=== PATIENT | female | born 1945 | race Caucasian/White ===

== ENCOUNTER 2023-08-24 12:14 | Emergency (ER) | payer MEDICARE, OTHER, SELFPAY ==
[2023-08-24 12:20] VITALS: BP 185/94
[2023-08-24 12:34] LABS: % Basophils 0.8 % (0-2); % Immature Granulocytes 0.4 % (0-0.5); % Lymphocytes 27.6 % (20.5-51.1); % Monocytes 7.6 % (1.7-9.3); % Neutrophils 59.6 % (42.2-75.2); Absolute Eosinophils 0.2 10^3/uL (0-0.7); Absolute Lymphocytes 1.4 10^3/uL (1.2-3.4); Absolute Monocytes 0.4 10^3/uL (0.1-0.6); Hematocrit 39.4 % (37.0-47.0); Hemoglobin 12.7 g/dL (12.0-16.0); Mean Corp Hgb Conc. 32.2 g/dL (33.0-37.0); Mean Corpuscular Hgb 29.1 pg (27.0-31.0); Mean Corpuscular Volume 90.4 fL (81.0-99.0); Mean Platelet Volume 9.1 fL (7.4-10.4); Nucleated Red Blood Cells % 0 %; Platelet Count 297 10^3/uL (130-400); Red Blood Cell Count 4.36 10^6/uL (4.20-5.40); Red Cell Dist. Width 13.4 % (11.5-14.5)
[2023-08-24 12:54] LABS: ALT (SGPT) 28 U/L (0-35); AST (SGOT) 32 U/L (14-36); Albumin 4.8 g/dl (3.5-5.0); Alkaline Phosphatase 70 U/L (38-126); Blood Urea Nitrogen 20 mg/dl (7-17); Carbon Dioxide 26 mmol/L (22-30); Chloride 104 mmol/L (98-107); Glucose 102 mg/dl (70-99); Potassium 4.7 mmol/L (3.5-5.1); Sodium 138 mmol/L (135-145); Total Bilirubin 0.6 mg/dl (0.2-1.3); eGFR > 60.00
--- NOTE | 2023-08-24 14:41 | ED.GENMED ---
History of Present Illness
General
Chief Complaint: Dizziness
Source: patient
Exam Limitations: none
Time Seen by Provider: 08/24/23 14:40
Nursing documentation reviewed up to this point in time: agreed with
Travel History
Have you had any contact with someone who has COVID-19?: No
Do you have any symptoms of coronavirus? Fever > 100 degrees, chills, cough, shortness of breath, sore throat, loss of taste or smell, muscle aches, or headache?: No
History of Present Illness
History of Present Illness:
78-year-old female with history of HTN, hyperglycemia, anemia, anxiety presents stating she woke up 7 a.m. with dizziness, not room spinning, 'inside my head' went back to bed, woke 9 a.m. still dizzy. Has had steady gait, dizziness is there at rest
and when moving, has had this before, last time 2 weeks ago, usually becomes anxious, takes her Ativan 0.5 mg and it dissipates. Dizziness was 9/10 this a.m. with nausea, took Ativan 11:30 and now dizziness 2/10 and nausea subsided. Denies change in
vision, no recent trauma, has 'mild' H/A. Denies weakness in extremities, has chronic neuropathy both feet, unchanged.
She flew to and from [place] 09/12 and 09/16, developed pressure behind right eye and sinus pressure Saw eye doctor 4 days ago for pain and pressure behind right eye, told eye exam was fine, may be sinus pressure.
She is due to get end of the month, fiance with her states she may be extra stressed but pt denies feeling much stress.
Past History
Past History
ED Past Medical History: HTN, Hypercholesterolemia, Psychiatric (Generalized anxiety, panic disorder) and Other (Constipation)
ED Past Surgical History: Gynecological (hyster)
Social History
Tobacco: Non-smoker
Alcohol: None
Drug: None
Personal:
Living: with family
Employment: Employed
Family History
Family History: Other (Noncontributory)
Review of Systems
Review of Systems
Allergies reviewed?: Yes
All Other Systems: ROS reviewed and negative except as documented in HPI and ROS
Constitutional: Denies fever or fatigue
EENT: Denies sore throat or runny nose
Respiratory: Denies trouble breathing
Cardiac: Denies chest pain
ABD/GI: Denies abdominal pain
: Reports no symptoms
Musculoskeletal: Reports no symptoms
Skin: Reports no symptoms
Neurological: Reports dizzy; Denies headache, weakness or numbness
Phy Exam
Physical Exam
Physical Exam:
GENERAL: No acute distress. A&Ox3.
CONSTITUTIONAL: Afebrile.
EYES: PERRL, conjunctivae normal
Neck: Supple
ENMT: moist mucus membranes, Pharynx nl, TMs normal
RESPIRATORY: Regular respirations, nonlabored, lungs clear.
CARDIOVASCULAR: Regular rate and rhythm, no murmurs, no rubs.
GI: Soft, nontender, normal BS
MUSCULOSKELETAL: Moves with ease. Well perfused.
SKIN: Warm, dry, pink
PSYCH: Normal mood and affect. Well kept, interactive and appropriate
NEUROLOGIC: Awake, alert and oriented. Speech clear. Cranial nerves II through XII intact. Strength equal throughout. [id number]-[id number] intact. Ambulates well with steady gait. No focal neurological deficits
Course
Orders/Labs/Results
Orders:
Orders
08/24/23 12:22
Electrocardiogram (*1) Urgent
Reason for Study: Vertigo / Dizzy
08/24/23 12:23
EKG- Treatment ONCE
08/24/23 12:28
CMP [Comprehensive Metabolic Panel] Urgent
Complete Blood Count/With Diff Urgent
08/24/23 15:16
CT Head W/o Iv Contrast Urgent
Comment:
Reason For Exam: dizziness
08/24/23 15:30
Physical Therapy Consult [Pt Eval And Treat] Urgent
Treatment: Vestibular evaluation after CT head result back
Activity Level: As Tolerated
08/24/23 16:03
Urinalysis Reflex To Culture Urgent
Date Specimen was Collected: 08/24/23
Time Specimen was Collected: 15:37
Urine Microscopic Reflex Cult Urgent
Urine Culture Urgent
SVETLANA Source: U
Specimen Description:
Date Specimen was Collected: 08/24/23
Time Specimen was Collected: 15:37
Abnormal Lab Results
08/24/23 08/24/23
12:28 16:03
MCHC 32.2 L g/dL
(33.0-37.0)
BUN 20 H mg/dl
(7-17)
Glucose 102 H mg/dl
(70-99)
Leukocyte Esterase Rfl 2+ A
(Negative)
Urine Bacteria (Reflex) Few A
(Negative)
08/24/23 12:28
08/24/23 12:28
Vital Signs
Initial and Last Documented VS:
Initial Vital Signs
Temp Pulse Resp BP Pulse Ox
98.8 F 85 18 185/94 96
08/24/23 12:20 08/24/23 12:20 08/24/23 12:20 08/24/23 12:20 08/24/23 12:20
Last Documented Vital Signs
Temp Pulse Resp BP Pulse Ox
98.8 F 80 20 125/67 96
08/24/23 12:20 08/24/23 16:08 08/24/23 16:08 08/24/23 16:08 08/24/23 16:08
MDM/Problems Addressed
Differential Diagnosis Includes:
BPPV, Labyrinthitis, vestibular neuritis, CVA, sinusitis
MDM/Problems Addressed:
78-year-old female with history of HTN, hyperglycemia, anemia, anxiety presents stating she woke up 7 a.m. with dizziness, not room spinning, 'inside my head' went back to bed, woke 9 a.m. still dizzy. Has had steady gait, dizziness is there at rest
and when moving, has had this before, last time 2 weeks ago, usually becomes anxious, takes her Ativan 0.5 mg and it dissipates. Dizziness was 9/10 this a.m. with nausea, took Ativan 11:30 and now dizziness 2/10 and nausea subsided. Denies change in
vision, no recent trauma, has 'mild' H/A. Denies weakness in extremities, has chronic neuropathy both feet, unchanged.
She flew to and from [place] 09/12 and 09/16, developed pressure behind right eye and sinus pressure Saw eye doctor 4 days ago for pain and pressure behind right eye, told eye exam was fine, may be sinus pressure.
She had left ear pain after her flight but this has dissipated.
She is due to get end of the month, fiance with her states she may be extra stressed but pt denies feeling much stress.
EKG: NSR with sinus arrhythmia
Neuro exam unremarkable
Some left nystagmus noted
3:12 PM
CBC unremarkable
CMP with no clinically significant abnormality, BUN 20 May have mild dehydration p.o. fluids encouraged
In further conversation, pt admits she has chronic neck pain, was told she needs surgery about 5 years ago, has not seen anyone since as she does not want surgery.
MRI c spine from 02/2017 reviewed: Impression:
Multilevel degenerative changes.
C3-4: Severe right foraminal stenosis. Mild central canal narrowing. Mild to moderate left foraminal narrowing.
C4-5: Moderate central canal stenosis. Mild cord compression. Advanced bilateral foraminal stenosis, right greater than left.
C5-6: Small protrusion. Advanced right foraminal stenosis. Mild central canal narrowing. No cord compression. Mild left foraminal narrowing.
C6-7: Moderate protrusion. Mild ventral cord compression. Moderate right foraminal stenosis.
Small subtle shallow disc protrusion in the visualized upper thoracic spine at T3-4.
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
Her intermittent dizziness could certainly be cervicogenic
Head CT: No acute abnormality
P/T in agrees with left nystagmus, minimal vertigo during exam, no skilled P/T needs identified.
Plan: Short burst steroids for c spine inflammation, suspect vestibular neuritis, her Ativan gave her much relief. f/u w PCP
She has orthopedic at [facility] to f/u with for her neck if she decides to do so
Pt ambulated out with normal gait at discharge
*EKG
EKG Intrepretation Date: 08/24/23
Interpretation: normal
Rate: normal
Rhythm: sinus and sinus arrhythmia
[place]: normal axis
Interval: normal interval
QRS Pattern: normal QRS
Ischemia: no ischemia
*Critical Care Note
Total Time (30-74mins, 75-104mins- exclusive of procedures): Not Applicable
ED Attending Note
-
Portions of this chart may have been created with voice recognition software.� Occasional wrong word or��sound alike� substitutions may have occurred due to the inherent limitations of voice recognition software.
Discharge Plan
Departure
Patient Disposition: Home (Routine Discharge)
Date of Disposition: 08/24/23
Time of Disposition: 16:58
Patient with high blood pressure during this ER visit?: No
Condition: Good
Discharge Problem:
Dizziness, Acute vestibular neuritis, DJD (degenerative joint disease) of cervical spine
Instructions: Labyrinthitis, Degenerative Disc Disease ED, Dizziness
Prescriptions:
New
prednisone 10 mg Tablet
See Rx Instructions .ROUTE .COMPLEX Qty: 30 0RF
Rx Instructions:
Take By Mouth:
40 mg daily x3 days, 30 mg daily x3 days,
20 mg daily x3 days, 10 mg daily x3 days.
No Action
lisinopril 5 MG tablet
5 mg PO DAILY
ginkgo biloba-Panax ginseng rt 1 CAP capsule
1 cap PO DAILY
bisacodyl 5 MG tablet,delayed release (DR/EC)
10 mg PO HSPRN PRN (Reason: constipation)
bisacodyl 5 MG tablet,delayed release (DR/EC)
5 mg PO DAILYPRN PRN (Reason: constipation)
lorazepam 1 MG tablet
1 mg PO HS
Patient Comments:
12/26/2017 patient takes 1mg at bed time but took 2mg today on the way in
fish oil-dha-epa 1 EACH capsule
1 ea PO DAILY
metronidazole 500 MG tablet
500 mg PO TID Qty: 21 0RF
levofloxacin 500 MG tablet
500 mg PO DAILY Qty: 7 0RF
Referrals:
Grace Kaufman CRNP [Family Provider] - Call in 1-3 days for appt
Activity Restrictions/Additional Instructions:
As we discussed, your intermittent dizziness may be caused by your significant cervical spine abnormalities.
Your dizziness may also be caused by inflammation of the inner ear ear, especially since you were flying recently.
I sent a prescription for steroids to your pharmacy this may help the inflammation in both your neck and your inner ear and help your dizziness.
You may want to consider reevaluation of your neck if your dizziness persists.
Follow up with your primary care provider in 7-10 days for re evaluation
Interventions
Interventions:
*Risk Screen - Suicide Last Done: 08/24/23 12:20
*General Assessment Last Done: 08/24/23 15:34
*Neglect/Abuse Screening Last Done: 08/24/23 12:20
*ED COVID-19 Vaccine History Last Done: 08/24/23 12:20
Discharge Date and Time
Print Language: LAO
[2023-08-24 15:34] VITALS: BMI 22.8
[2023-08-24 16:08] VITALS: BP 125/67
[2023-08-24 16:20] LABS: Urine Albumin Negative (Neg - Trace); Urine Bilirubin Negative (Negative); Urine Character Clear (Clear); Urine Color Yellow; Urine Glucose Negative (Negative); Urine Ketone Negative (Negative); Urine Leukocyte 2+ (Negative); Urine Nitrite Negative (Negative); Urine Occult Blood Negative (Negative); Urine Urobilinogen Negative (Neg - 1+)
[2023-08-24 16:35] LABS: Urine Bacteria Few (Negative); Urine Red Blood Cell 0-2 /HPF (0-2)
[2023-08-24 17:17] VITALS: BP 125/80; BP 143/80; PULSE 84
== END 2023-08-25 17:15 | disposition home or self-care (01) ==
LOC: EMR 12:14
PROVIDERS: Registered Nurse; Student in an Organized Health Care Education/Training Program; EMERGENCY PHYSICIAN Emergency Medicine; FAMILY PHYSICIAN Nurse Practitioner Family
DX: R42 Dizziness and giddiness (principal); R11.0 Nausea; M54.2 Cervicalgia; M47.812 Spondylosis without myelopathy or radiculopathy, cervical region; G58.8 Other specified mononeuropathies; E78.00 Pure hypercholesterolemia, unspecified; I10 Essential (primary) hypertension; F41.1 Generalized anxiety disorder; F41.0 Panic disorder [episodic paroxysmal anxiety]; M48.02 Spinal stenosis, cervical region; M51.24 Other intervertebral disc displacement, thoracic region; D64.9 Anemia, unspecified; G62.9 Polyneuropathy, unspecified; G89.29 Other chronic pain; Z88.3 Allergy status to other anti-infective agents; Z88.0 Allergy status to penicillin
CPT/HCPCS: 70450; 80053; 81003; 81015; 85025; 87086; 93005; 99284